=== PATIENT | female | born 1985 | race Two or more races ===

== ENCOUNTER 2018-09-12 01:04 | Emergency (ER) | payer MEDICAID ==
[~2018-09-12] VITALS: Ht 154.9 cm; Wt 56.2 kg
[2018-09-12] MEDS ORDERED: ONDANSETRON 4 MG/2 ML VIAL IV ONE (01:30)
[2018-09-12] MEDS ORDERED: MORPHINE SULFATE 2 MG/1 ML DISP.SYRIN IV ONE (01:30)
[2018-09-12] MEDS ORDERED: IV NORMAL SALINE 1000 ML BAG IV ONE (01:30)
[2018-09-12] MEDS ORDERED: ONDANSETRON 4 MG/2 ML VIAL ONE ×2 (01:44→02:58)
[2018-09-12] MEDS ORDERED: MORPHINE SULFATE 4 MG/1 ML DISP.SYRIN ONE (01:44)
[2018-09-12 01:57] LABS: BASOPHILS # (AUTO) 0.1 K/uL (0.0-8.0); BASOPHILS % (AUTO) 0.5 % (0.0-2.0); EOSINOPHILS # (AUTO) 0.2 K/uL (0.0-0.7); HEMOGLOBIN 12.1 g/dL (10.9-14.3); LYMPHOCYTES # (AUTO) 1.5 K/uL (20.0-40.0); LYMPHOCYTES % (AUTO) 10.1 % (20.5-51.5); MEAN CORPUSCULAR HEMOGLOBIN 29.1 uug (24.7-32.8); MEAN CORPUSCULAR HGB CONC 35 g/dL (32.3-35.6); MEAN CORPUSCULAR VOLUME 84.4 fL (75.5-95.3); MONOCYTES # (AUTO) 0.8 K/uL (2.0-10.0); NEUTROPHILS # (AUTO) 12.5 K/uL (1.8-8.9); NEUTROPHILS % (AUTO) 83.4 % (38.5-71.5); PLATELET COUNT (AUTO) 243 K/uL (179-408); RED BLOOD CELL COUNT(AUTO) 4.14 MIL/uL (3.63-4.92)
[2018-09-12 02:05] LABS: *BILIRUBIN,URIN NEGATIVE (NEGATIVE); *BLOOD, URINE Trace-intact (NEGATIVE); *CLARITY,URINE CLEAR (CLEAR); *KETONES,URINE NEGATIVE (NEGATIVE); *UROBILINOGEN,URINE 0.2 E.U./dl (NORMAL); LEUKOCYTE ESTERASE ,URINE NEGATIVE (NEGATIVE); NITRITE, URINE NEGATIVE (NEGATIVE); UGLUCOSE NEGATIVE (NEGATIVE)
[2018-09-12 02:05] LABS: BILIRUBIN,DIRECT 0.1 mg/dL (0.0-0.2); BILIRUBIN,TOTAL 0.1 mg/dL (0.2-1.0); CREATININE 0.7 mg/dL (0.6-1.3); POTASSIUM 3.5 mmol/L (3.5-5.1); TOTAL PROTEIN, SERUM 7.5 g/dL (6.4-8.2)
[2018-09-12 02:06] LABS: *COLOR,URINE STRAW (YELLOW)
[2018-09-12 02:07] LABS: *URINE HCG, QUAL NEGATIVE (NEGATIVE)
[2018-09-12 02:10] LABS: BACTERIA,URINE NONE SEEN /HPF (NONE SEEN); RBC,URINE 0-3 /HPF (0-3); SQUAMOUS EPITHELIAL CELL,UR FEW /HPF (NONE SEEN); WBC,URINE 0-3 /HPF (0-3)
[2018-09-12] MEDS ORDERED: SWABABLE VALVE TRANSFER SET EA MC ONE (02:18)
[2018-09-12] MEDS ORDERED: IV NORMAL SALINE 250 ML IV ONE (02:19)
[2018-09-12] MEDS ORDERED: IOHEXOL 300MG/ML 100 ML INFUS..BTL ONE (02:19)
[2018-09-12] MEDS ORDERED: HYDROMORPHONE 1 MG/1 ML DISP.SYRIN ONE (02:59)
[2018-09-12] MEDS ORDERED: ONDANSETRON IV *ER 4 MG/2 ML VIAL IV ONE (03:00)
[2018-09-12] MEDS ORDERED: HYDROMORPHONE 1 MG/1 ML DISP.SYRIN IV ONE (03:00)
--- NOTE | 2018-09-12 03:18 | NUR ---
MILAN speaking with Dr. WRIGHT (RADIOLOGY)
[2018-09-12] MEDS ORDERED: CIPROFLOXACIN HCL 250 MG TABLET ONE (03:19)
[2018-09-12] MEDS ORDERED: METRONIDAZOLE 500 MG TABLET ONE (03:19)
[2018-09-12] MEDS ORDERED: METRONIDAZOLE 500 MG TABLET PO ONE (03:30)
[2018-09-12] MEDS ORDERED: CIPROFLOXACIN HCL 250 MG TABLET PO ONE (03:30)
--- NOTE | 2018-09-12 03:44 | NUR ---
Patient discharged to home in stable conditon. Written and verbal after care instructions given. Patient verbalizes understanding of instructions.
== END 2018-09-12 03:45 | disposition home or self-care (01) ==
LOC: ER 01:06
DX: K52.9 Noninfective gastroenteritis and colitis, unspecified (principal)
CPT/HCPCS: 36415; 74177; 80048; 80076; 81001; 83605; 83690; 84703; 85025; 96361 ×2; 96374; 96375; 96376; 99284; J1170; J2270; J2405 ×2; Q9967; A4663; J7030; J7050